=== PATIENT | male | born 1950 | race Caucasian/White ===

== ENCOUNTER 2017-11-09 10:20 | Emergency (ER) | payer MEDICARE, BC ==
[2017-11-09] MEDS ORDERED: Aspirin 81 MG Tab.Chew PO ONE (10:26)
[2017-11-09] MEDS ORDERED: Sodium Chloride 0.9% 10 ML Syringe FLUSH PRN (10:26)
[2017-11-09] MEDS ORDERED: Sodium Chloride 0.9% 1,000 ML IV SCH ×2 (10:30→11:45)
[2017-11-09] MEDS ORDERED: Ondansetron 4 MG/2 ML SDV ONE (10:43)
[2017-11-09] MEDS ORDERED: Ondansetron 4 MG/2 ML SDV IVPUSH ONE ×2 (10:45→10:59)
[2017-11-09] MEDS ORDERED: Meclizine 25 MG Tab PO ONE (11:00)
--- NOTE | 2017-11-09 11:00 | EDM.PDOC ---
ED HPI GENERAL MEDICAL PROBLEM - General Chief Complaint: Syncope Stated Complaint: [facility] Time Seen by Provider: 11/09/17 10:25 Source of Information: Reports: Patient, EMS History Limitations: Reports: No Limitations, Other (very sick to stomach) - History of Present Illness INITIAL COMMENTS - FREE TEXT/NARRATIVE: Was at car dealership, was getting ready to sign papers on new car when he had near syncopal episode. He did not lose consciousness. He is diaphoretic, vomiting, and dizzy. 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 He had the stent placed in [place]. Denies any chest pain, pressure, tightness, squeezing, heaviness. No SOB. Onset: Today Duration: Hour(s): (1 hour) Location: Reports: Chest Severity: Moderate Associated Symptoms: Reports: Nausea/Vomiting - Related Data Allergies Allergy/AdvReac Type Severity Reaction Status Date / Time No Known Allergies Allergy Verified 11/09/17 10:30 Home Meds: Home Meds Aspirin 1 tab PO DAILY 11/09/17 [History] Simvastatin [Zocor] 1 tab PO DAILY 11/09/17 [History] Social & Family History - Tobacco Use Smoking Status *Q: Never Smoker - Recreational Drug Use Recreational Drug Use: No ED ROS GENERAL - Review of Systems Review Of Systems: See Below Constitutional: Reports: Weakness, Diaphoresis Respiratory: Reports: No Symptoms Cardiovascular: Reports: Syncope (near) GI/Abdominal: Reports: Hematemesis, Vomiting : Reports: No Symptoms Musculoskeletal: Reports: No Symptoms Skin: Reports: No Symptoms Neurological: Reports: Dizziness, Syncope (near syncope), Weakness Psychiatric: Reports: No Symptoms Hematologic/Lymphatic: Denies: No Symptoms ED EXAM, GENERAL - Physical Exam Exam: See Below Exam Limited By: No Limitations General Appearance: Alert, WD/WN, No Apparent Distress Eye Exam: Bilateral Eye: EOMI, PERRL Head: Atraumatic, Normocephalic Neck: Normal Inspection, Full Range of Motion Respiratory/Chest: No Respiratory Distress, Lungs Clear, Normal Breath Sounds Cardiovascular: Regular Rate, Rhythm Peripheral Pulses: 4+: Posterior Tibial (L), Posterior Tibial (R), Dorsalis Pedis (L), Dorsalis Pedis (R) GI/Abdominal: Normal Bowel Sounds, Soft, Non-Tender Back Exam: Full Range of Motion Extremities: Normal Range of Motion Neurological: Alert, Oriented, CN II-XII Intact, Normal Cognition Psychiatric: Flat Affect. No: Normal Affect Skin Exam: Intact, Diaphoretic EKG INTERPRETATION EKG Date: 11/09/17 Time: 10:24 Rhythm: NSR [place]: Normal P-Wave: Present QRS: RBBB ST-T: Normal QT: Normal Comparison: NA - No Prior EKG EKG Interpretation Comments: EKG first and second sent to [place] cardiology, Dr. Peerz to review. Course - Vital Signs Last Recorded V/S: Last Vital Signs Temp 97.1 F 11/09/17 10:30 Pulse 65 11/09/17 10:56 Resp 16 11/09/17 10:56 BP 140/73 11/09/17 10:56 Pulse Ox 99 11/09/17 10:56 - Orders/Labs/Meds Orders: Active Orders 24 hr Category Date Time Status Cardiac Monitoring [RC] .As Directed Care 11/09/17 10:26 Active EKG Documentation Completion [RC] ASDIRECTED Care 11/09/17 10:29 Active EKG Documentation Completion [RC] ASDIRECTED Care 11/09/17 10:44 Active Gastric Occult/pH Collection D [RC] ASDIRECTED Care 11/09/17 11:05 Active Peripheral IV Care [RC] . DIRECTED Care 11/09/17 10:29 Active Pulse Oximetry [RC] ASDIRECTED Care 11/09/17 10:26 Active ED Antiemetic Medication Reflex [OM.PC] Stat Oth 11/09/17 10:27 Ordered Peripheral IV Insertion Adult [OM.PC] Stat Oth 11/09/17 10:26 Ordered EKG 12 Lead [EK] Routine Ther 11/09/17 10:43 Ordered EKG 12 Lead [EK] Stat Ther 11/09/17 10:28 Ordered Labs: Laboratory Tests 11/09/17 11/09/17 11/09/17 Range/Units 10:30 10:30 10:30 WBC 8.6 (4.5-11.0) K/uL RBC 4.68 (4.30-5.90) M/uL Hgb 14.2 (12.0-15.0) g/dL Hct 42.9 (40.0-54.0) % MCV 92 (80-98) fL MCH 30 (27-31) pg MCHC 33 (32-36) % Plt Count 223 (150-400) K/uL Neut % (Auto) 56 (36-66) % Lymph % (Auto) 28 (24-44) % [place] % (Auto) 13 H (2-6) % Eos % (Auto) 3 (2-4) % Baso % (Auto) 0 (0-1) % APTT 22.3 L (27.0-36.0) sec Sodium 141 (140-148) mmol/L Potassium 3.6 (3.6-5.2) mmol/L Chloride 105 (100-108) mmol/L Carbon Dioxide 27 (21-32) mmol/L Anion Gap 9.5 (5.0-14.0) mmol/L BUN 21 H (7-18) mg/dL Creatinine 1.1 (0.8-1.3) mg/dL Est Cr Clr Drug Dosing 73.19 mL/min Estimated GFR (MDRD) > 60 (>60) Glucose 155 H (74-106) mg/dL Calcium 8.6 (8.5-10.1) mg/dL Total Bilirubin 0.6 (0.2-1.0) mg/dL AST 29 (15-37) U/L ALT 55 (12-78) U/L Alkaline Phosphatase 92 (46-116) U/L Troponin I < 0.017 (0.000-0.056) ng/mL Total Protein 6.5 (6.4-8.2) g/dL Albumin 3.6 (3.4-5.0) g/dL Globulin 2.9 (2.3-3.5) g/dL Albumin/Globulin Ratio 1.2 (1.2-2.2) Meds: Medications Discontinued Medications Generic Name Dose Route Start Last Admin Trade Name Freq PRN Reason Stop Dose Admin Aspirin 324 mg 11/09/17 10:26 11/09/17 10:38 Aspirin PO 11/09/17 10:27 324 mg ONETIME ONE Administration Sodium Chloride 1,000 mls @ 125 mls/hr 11/09/17 10:30 11/09/17 10:36 Normal Saline IV 125 mls/hr ASDIRECTED JOEL Administration Sodium Chloride 1,000 mls @ 300 mls/hr 11/09/17 11:45 11/09/17 11:40 Normal Saline IV 300 mls/hr ASDIRECTED JOEL Administration Promethazine HCl 12.5 mg/ 50.5 mls @ 200 mls/hr 11/09/17 11:53 11/09/17 12:01 Sodium Chloride IV 200 mls/hr Q6H PRN Administration Nausea/Vomiting Meclizine HCl 25 mg 11/09/17 11:00 11/09/17 11:57 Antivert PO 11/09/17 11:01 Not Given ONETIME ONE Ondansetron HCl Confirm 11/09/17 10:43 11/09/17 10:49 Zofran Administered 11/09/17 10:44 Not Given Dose 4 mg .ROUTE .STK-MED ONE Ondansetron HCl 4 mg 11/09/17 10:45 11/09/17 10:46 Zofran IVPUSH 11/09/17 10:46 4 mg ONETIME ONE Administration Ondansetron HCl 4 mg 11/09/17 10:59 11/09/17 11:02 Zofran IVPUSH 11/09/17 11:00 4 mg ONETIME ONE Administration Sodium Chloride 10 ml 11/09/17 10:26 11/09/17 10:36 Saline Flush FLUSH 10 ml ASDIRECTED PRN Administration Keep Vein Open - Re-Assessments/Exams Free Text/Narrative Re-Assessment/Exam: 11/09/17 11:12 Dark colored emesis; send for gastrocult; awaiting results. Free Text/Narrative Re-Assessment/Exam: 11/09/17 11:45 Gastroccult was positive; IVF 300 ml bolus. 11/09/17 15:32 transferred to [place] for cardiology/gastro services. Departure - Departure Time of Disposition: 12:30 Disposition: DC/Tfer to Other Reason for Transfer *Q: Other (cardiac cardiac cath lab manager availability) Condition: Fair Clinical Impression: Upper GI bleed, Dizziness Referrals: PCP,None [Primary Care Provider] - Forms: ED Department Discharge ED Communication - Discussed Case With (1) Discussed Case With (1): Admitting Provider (Hospitalist at [facility] is accepting , ([place])), Outpatient Provider (Spoke with Dr. Perez, server security administrator in [place]; will send) - Problem List & Annotations (1) Upper GI bleed SNOMED Code(s): 82560266 Code(s): K92.2 - GASTROINTESTINAL HEMORRHAGE, UNSPECIFIED Status: Acute Priority: Medium - Problem List Review Problem List Initiated/Reviewed/Updated: Yes - My Orders Last 24 Hours: My Active Orders 11/09/17 10:26 Cardiac Monitoring [RC] .As Directed Pulse Oximetry [RC] ASDIRECTED Peripheral IV Insertion Adult [OM.PC] Stat 11/09/17 10:27 ED Antiemetic Medication Reflex [OM.PC] Stat 11/09/17 10:28 EKG 12 Lead [EK] Stat 11/09/17 10:29 EKG Documentation Completion [RC] ASDIRECTED Peripheral IV Care [RC] . DIRECTED 11/09/17 10:43 EKG 12 Lead [EK] Routine 11/09/17 10:44 EKG Documentation Completion [RC] ASDIRECTED 11/09/17 11:05 Gastric Occult/pH Collection D [RC] ASDIRECTED - Assessment/Plan Last 24 Hours: My Active Orders 11/09/17 10:26 Cardiac Monitoring [RC] .As Directed Pulse Oximetry [RC] ASDIRECTED Peripheral IV Insertion Adult [OM.PC] Stat 11/09/17 10:27 ED Antiemetic Medication Reflex [OM.PC] Stat 11/09/17 10:28 EKG 12 Lead [EK] Stat 11/09/17 10:29 EKG Documentation Completion [RC] ASDIRECTED Peripheral IV Care [RC] . DIRECTED 11/09/17 10:43 EKG 12 Lead [EK] Routine 11/09/17 10:44 EKG Documentation Completion [RC] ASDIRECTED 11/09/17 11:05 Gastric Occult/pH Collection D [RC] ASDIRECTED
--- NOTE | 2017-11-09 11:35 | CR ---
Chest 1V Frontal INDICATION: Chest Pain COMPARISON: None FINDINGS: 2 AP portable views of the chest. Probable skinfold right apex. If symptoms persist, recommend follow-up exam to exclude tiny pneumotho rax. Chest otherwise negative.
[2017-11-09] MEDS ORDERED: Promethazine 12.5 MG in Sodium Chloride 0.9% 50 ML IV PRN (11:53)
== END 2017-11-09 12:30 | disposition other institution (70) ==
LOC: JP.ED 10:20
DX: K92.2 Gastrointestinal hemorrhage, unspecified (principal); R42 Dizziness and giddiness; Z79.899 Other long term (current) drug therapy
CPT/HCPCS: 36415; 71045; 80053; 82271; 84484; 85025; 85730; 93005; 96361; 96374; 96375; 99285; A9270; J2405; J2550; J7030; J7050